=== PATIENT | male | born 1965 | race African-American/Black ===

== ENCOUNTER 2019-04-30 17:06 | Emergency (ER) | payer BC, OTHER ==
[2019-04-30 17:21] VITALS: BP 112/76; PULSE 62; TEMP 98; BMI 34.5
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
[2019-04-30] MEDS ORDERED: ACETAMINOPHEN 500 MG TABLET (FP) PO ONE (18:42)
[2019-04-30] MEDS ORDERED: ACETAMINOPHEN 500 MG TABLET (FP) ONE (18:48)
[2019-04-30] MEDS ORDERED: CYCLOBENZAPRINE HCL 10 MG TABLET (FP) PO ONE (18:55)
[2019-04-30] MEDS ORDERED: LIDOCAINE 5% TOPICAL PATCH TP ONE (18:55)
[2019-04-30] MEDS ORDERED: LIDOCAINE 5% TOPICAL PATCH ONE (18:57)
[2019-04-30] MEDS ORDERED: CYCLOBENZAPRINE HCL 10 MG TABLET (FP) ONE (18:57)
[2019-04-30 19:13] LABS: BASO % 0.7 % (0-2.0); EOS % 2.3 % (0-4.5); HEMATOCRIT 43.8 % (35.4-49); HEMOGLOBIN 14.7 GM/dL (11.7-16.9); LYMPH % 44.1 % (8-40); MCH 28.8 pg (25.7-33.7); MCHC 33.6 g/dl (32.0-35.9); MEAN CELL VOLUME 85.5 fl (80-96); MEAN PLT VOLUME 7.9 fl (7.5-11.1); MONO % 8.5 % (3.8-10.2); NEUT % 44.4 % (42.8-82.8); PLATELET COUNT 255 K/MM3 (134-434); RBC 5.12 M/mm3 (4.00-5.60); RDW 13.8 % (11.9-15.9)
[2019-04-30 19:37] LABS: ALBUMIN 3.9 g/dl (3.4-5.0); BILIRUBIN,TOTAL 0.3 mg/dL (0.2-1); BLOOD UREA NITROGEN 12.7 mg/dL (7-18); CALCIUM 8.6 mg/dL (8.5-10.1); TOT PROT 7.2 g/dl (6.4-8.2)
[2019-04-30 20:03] LABS: URINE APPEARANCE CLEAR; URINE BILIRUBIN NEGATIVE (NEGATIVE); URINE COLOR YELLOW; URINE GLUCOSE (UA) NEGATIVE (NEGATIVE); URINE KETONE NEGATIVE (NEGATIVE); URINE LEUK ESTERASE NEGATIVE (NEGATIVE); URINE NITRITE NEGATIVE (NEGATIVE); URINE PROTEIN NEGATIVE (NEGATIVE); URINE UROBILINOGEN 0.2 mg/dL (0.2-1.0)
--- NOTE | 2019-05-01 09:53 | EKG ---
Test Reason : Blood Pressure : / mmHG Vent. Rate : 048 BPM Atrial Rate : 048 BPM P-R Int : 238 ms QRS Dur : 082 ms QT Int : 448 ms P-R-T Axes : 045 014 013 degrees QTc Int : 400 ms SINUS BRADYCARDIA WITH 1ST DEGREE A-V BLOCK NO PREVIOUS ECGS AVAILABLE Confirmed by ETTA CONLEY MD ([id number]) on 05/01/2019 9:53:22 AM Referred By: Confirmed By:ETTA CONLEY MD
== END 2019-04-30 21:53 | disposition home or self-care (01) ==
LOC: JER 17:06
DX: S20.211A Contusion of right front wall of thorax, initial encounter (principal); V23.4XXA Motorcycle driver injured in collision with car, pick-up truck or van in traffic accident, initial encounter; Y92.414 Local residential or business street as the place of occurrence of the external cause; Y93.55 Activity, bike riding; Y99.8 Other external cause status; J45.909 Unspecified asthma, uncomplicated; K21.9 Gastro-esophageal reflux disease without esophagitis; Z88.0 Allergy status to penicillin
CPT/HCPCS: 36415; 71101-TC-RT-FY; 71260-TC; 72100-TC-FY; 73523-TC-FY; 73562-TC-LT-FY; 76604; 76705-TC; 80053; 81003; 83690; 85025; 93005; 93010; 93308; 99284-25